=== PATIENT | male | born 1975 | race African-American/Black ===

== ENCOUNTER 2016-12-06 18:17 | Emergency (ER) | payer SELFPAY ==
[~2016-12-06] VITALS: Ht 188 cm; Wt 75.0 kg
[2016-12-07 04:00] VITALS: BP 121/76
== END 2016-12-07 04:01 | disposition home or self-care (01) ==
LOC: ER 18:17
DX: M71.9 Bursopathy, unspecified (principal); F17.200 Nicotine dependence, unspecified, uncomplicated; F12.10 Cannabis abuse, uncomplicated
CPT/HCPCS: 73080; 93971; 99284; Z7610

== ENCOUNTER 2016-12-17 19:15 | Emergency (ER) | payer SELFPAY | END 2016-12-17 22:00 | disposition left against medical advice (07) | LOC: ER 21:52 | DX: Z53.21 Procedure and treatment not carried out due to patient leaving prior to being seen by health care provider (principal) ==

== ENCOUNTER 2016-12-18 02:10 | Emergency (ER) | payer MEDICAID ==
[~2016-12-18] VITALS: Ht 188 cm; Wt 75.0 kg
[2016-12-18] MEDS ORDERED: HYDROCODONE/ACETAMINOPHEN 5/325MG TABLET PO ONE (07:15)
[2016-12-18 10:17] VITALS: BP 125/66
== END 2016-12-18 10:24 | disposition home or self-care (01) ==
LOC: ER 02:10
DX: S62.398A Other fracture of other metacarpal bone, initial encounter for closed fracture (principal); F17.210 Nicotine dependence, cigarettes, uncomplicated; F12.10 Cannabis abuse, uncomplicated; Y04.0XXA Assault by unarmed brawl or fight, initial encounter; Y93.89 Activity, other specified; Y92.89 Other specified places as the place of occurrence of the external cause
CPT/HCPCS: 29125; 73110; 73130; 99284; Z7610; A4565